=== PATIENT | female | born 1985 | race Hispanic/Latino ===

== ENCOUNTER 2018-10-25 07:08 | Outpatient (CLI) | payer OTHER ==
--- NOTE | 2018-10-25 08:55 | ULT ---
OB ULTRASOUND: HISTORY: Evaluate anatomy. COMPARISON: None. TECHNIQUE: Sagittal and transverse imaging of the gravid uterus was performed. FINDINGS: The cervix measures 3.0 cm and appears to be closed. Anterior placenta. No evidence of previa. Con traction of the posterior uterus is noted. presentation is variable. Biometry: BPD 4.69 cm, 20 weeks 20 days Head circumference 17.28 cm, 19 weeks 6 days Abdominal circumference 14.72 cm, 20 weeks 1 day Femur length 2.14 cm, 19 weeks 6 days Average age by sonography is 20 weeks 1 day. Estimated weight is 319 gm. Amniotic fluid index is 12.5 cm. heart tones with a rate of 136 b.p.m. ANATOMY: Adequate demonstration of a normal-appearing bladder, cord insertion, 3-vessel cord, extremities, sag ittal spine, transverse spine, kidneys, lateral ventricle, cerebellum. Limited evaluation of the nos e and lips, stomach, and 4-chamber heart. IMPRESSION: 1. Single intrauterine gestation with heart tones. Average by sonography is 20 weeks 1 day. 2. anatomy as detailed above. Limited evaluation of the stomach, 4-chamber heart, nose, and l ips. POS: [facility]
== END 2018-10-25 07:09 | disposition home or self-care (01) ==
LOC: BICULT 07:08
PROVIDERS: ATTEND Nurse Practitioner
DX: O09.92 Supervision of high risk pregnancy, unspecified, second trimester (principal); Z3A.20 20 weeks gestation of pregnancy
CPT/HCPCS: 76805

== ENCOUNTER 2018-11-30 10:09 | Outpatient (CLI) | payer OTHER ==
--- NOTE | 2018-11-30 12:39 | ULT ---
ULTRASOUND OBSTETRICAL COMPLETE: HISTORY: O09.92, high risk in 2nd trimester. Incomplete visualization of anatomy on previous ultrasound. FINDINGS: number: [place]. lie: Cephalic. Maternal cervix: 2.5 cm long and closed. Placenta: Anterior. No placenta previa. Amniotic fluid volume: 14 cm. heart rate: 140 b.p.m. The following anatomy is visualized, with no evidence of anomalies: Head, lateral ventricles, cerebellum, nose and lips, spine, upper limbs, lower limbs, four chamber he art, umbilical cord, cord insertion, stomach, kidneys, and bladder. biometry: Head circumference (HC): 23.3 cm 25 w 3 d Biparietal diameter (BPD): 6.1 cm 25 w 0 d Abdominal circumference (AC): 21.3 cm 25 w 6 d Femur length (FL): 5.1 cm 27 w 3 d Average ultrasound age (AUA): 26 w 0 d Estimated date of delivery (SAM): 03/08/2019. Last menstrual period (LMP): 06/07/2018. Gestational age by LMP: 25 w 1 d. Estimated weight (EFW): 812 g +/- 133 g (2 lb 0 oz +/- 5 oz). IMPRESSION: 1. Live late 2nd trimester intrauterine gestation. 2. Estimated gestational age of 25 weeks, 1 day. 3. Cephalic lie. 4. No anatomical abnormalities. comfort [] POS: [facility]
== END 2018-11-30 10:10 | disposition home or self-care (01) ==
LOC: BICULT 10:09
PROVIDERS: ATTEND Nurse Practitioner
DX: O09.92 Supervision of high risk pregnancy, unspecified, second trimester (principal); Z3A.25 25 weeks gestation of pregnancy
CPT/HCPCS: 76805